=== PATIENT | male | born 1985 | race African-American/Black ===

== ENCOUNTER 2016-12-20 19:59 | Emergency (ER) | payer OTHER ==
[~2016-12-20 19:59] MED LIST: B12,B-12,B 12500 MC1 PO; BACTRIM DS 8001 TA1 PO; CLINDAMYCIN HC300 MG PO; DAYPRO600 M1 PO; HYDROCODONE BIT1 T11 PO; INDOMETHACIN25 M1 PO; LOMOTIL 0.025 M1 TA1 PO; MOTRIN800 MG PO; Motrin,Rufen800 MG PO; NAPROSYN500 MG PO; NKHM; NORCO 325 MG-51 TAB PO; NORCO 5-325 TA1 EACH PO; PARAFON FORTE500 MG PO; PEN-V500 MG PO; PREDNISONE50 MG PO; ROBAXIN750 MG PO; ULTRAM50 MG PO; VICODIN 5/500 505 MG PO; Veetids,V-Cill500 MG PO; ZITHROMAX250 MG PO; ZOFRAN ODT4 MG SL; ZOVIRAX400 MG PO
[2016-12-20] MEDS ORDERED: 'PARAFON FORTE500 M1 PO (20:21)
[2016-12-20] MEDS ORDERED: NAPROSYN500 MG PO (20:21)
[2016-12-20] MEDS ORDERED: PENICILLIN VK500 MG PO (20:31)
[2016-12-20] MEDS ORDERED: Peridex 473 ML473 ML PO (20:31)
== END 2016-12-20 20:57 | disposition home or self-care (01) ==
LOC: ED 19:59
DX: M54.41 Lumbago with sciatica, right side (principal); K02.9 Dental caries, unspecified; R03.0 Elevated blood-pressure reading, without diagnosis of hypertension; F17.200 Nicotine dependence, unspecified, uncomplicated

== ENCOUNTER 2016-12-23 21:19 | Emergency (ER) | payer OTHER ==
[~2016-12-23] VITALS: Ht 167.6 cm; Wt 68.0 kg
[~2016-12-23 21:19] MED LIST changes: +'PARAFON FORTE500 M1 PO; +PENICILLIN VK500 MG PO; +Peridex 473 ML473 ML PO
[2016-12-23] MEDS ORDERED: Orphenadrine C100 MG PO (22:10)
[2016-12-23] MEDS ORDERED: ULTRAM50 MG PO (22:10)
== END 2016-12-23 22:12 | disposition home or self-care (01) ==
LOC: ED 21:19
DX: M54.31 Sciatica, right side (principal)

== ENCOUNTER → 2017-02-24 | Outpatient (CLI) | payer OTHER ==
[~2017-02-24] MED LIST changes: +Orphenadrine C100 MG PO
== END | disposition home or self-care (01) ==
LOC: RESCLI 02-20 10:49
DX: Z00.00 Encounter for general adult medical examination without abnormal findings (principal)

== ENCOUNTER 2017-06-26 23:50 | Emergency (ER) | payer OTHER ==
[~2017-06-26] VITALS: Ht 167.6 cm; Wt 68.0 kg
[2017-06-27] MEDS ORDERED: AMOXICILLIN500 M2 PO (00:07)
== END 2017-06-27 01:14 | disposition home or self-care (01) ==
LOC: ED 23:50
DX: K08.89 Other specified disorders of teeth and supporting structures (principal); F17.200 Nicotine dependence, unspecified, uncomplicated; Z79.899 Other long term (current) drug therapy

== ENCOUNTER 2017-07-24 09:32 | Emergency (ER) | payer OTHER ==
[~2017-07-24] VITALS: Ht 167.6 cm; Wt 70.3 kg
[~2017-07-24 09:32] MED LIST changes: +AMOXICILLIN500 M2 PO
[2017-07-24 10:08] LABS: BASO % 0.5 % (0.0-1.0); EOS # 0.1 10*3/uL (0.0-0.4); EOS % 1.7 % (1.0-4.0); HEMATOCRIT 44.1 % (42.0-52.0); LYMPH # 2.8 10*3/uL (1.3-4.4); LYMPH % 37.7 % (27.0-41.0); MEAN CELL VOLUME 79.2 fl (80.0-94.0); MEAN CORPUSCULAR HGB 25.1 pg (27.0-31.0); MEAN CORPUSCULAR HGB CONC 31.7 g/dl (33.0-37.0); MEAN PLATELET VOLUME 9.1 fl (9.6-12.3); MONO # 0.7 10*3/uL (0.1-1.0); MONO % 9.2 % (3.0-9.0); NEUT # 3.8 10*3/uL (2.3-7.9); NEUT % 50.8 % (47.0-73.0); PLATELET COUNT AUTOMATED 245 10*3/uL (130-400); RED BLOOD COUNT 5.57 10*6/uL (4.50-5.90); RED CELL DISTRI WIDTH 13.2 % (0-14.5); WHITE BLOOD COUNT 7.5 10*3/uL (4.8-10.8)
[2017-07-24 10:26] LABS: ALBUMIN 3.8 gm/dl (3.1-4.5); ALKALINE PHOSPHATASE 81 U/L (45-117); BUN 9 mg/dl (7-24); CHLORIDE 106 mmol/L (98-107); CREATININE 0.87 mg/dL (0.70-1.30); LIPASE 150 U/L (73-393); POTASSIUM 4.2 mmol/L (3.5-5.1); SGOT/AST 20 IU/L (3-35); SGPT/ALT 32 U/L (12-78); SODIUM 139 mmol/L (136-145); TOTAL PROTEIN 7.2 gm/dL (6.4-8.2)
[2017-07-24 11:07] LABS: BILIRUBIN NEGATIVE (NEGATIVE); BLOOD NEGATIVE (NEGATIVE); CLARITY CLEAR (CLEAR); COLOR YELLOW (YELLOW); GLUCOSE NEGATIVE (NEGATIVE); KETONE NEGATIVE (NEGATIVE); LEUKO ESTERASE NEGATIVE (NEGATIVE); NITRITE NEGATIVE (NEGATIVE); SPECIFIC GRAVITY 1.025 (1.005-1.030); UROBILINOGEN 0.2 E.U./dl (0.2-1.0)
[2017-07-24 11:21] LABS: MUCOUS TRACE; RBC 0-2 rbc/hpf (0-2); WBC 0-2 wbc/hpf (0-5)
[2017-07-24] MEDS ORDERED: CYCLOBENZAPRINE5 M3 PO (11:30)
== END 2017-07-24 11:42 | disposition home or self-care (01) ==
LOC: ED 09:32
PROVIDERS: Nurse Practitioner Family
DX: S29.011A Strain of muscle and tendon of front wall of thorax, initial encounter (principal); R10.12 Left upper quadrant pain; F17.200 Nicotine dependence, unspecified, uncomplicated; Z98.890 Other specified postprocedural states; X50.1XXA Overexertion from prolonged static or awkward postures, initial encounter; Y93.89 Activity, other specified; Y92.89 Other specified places as the place of occurrence of the external cause; Y99.9 Unspecified external cause status

== ENCOUNTER 2018-02-05 04:38 | Emergency (ER) | payer OTHER ==
[~2018-02-05] VITALS: Ht 167.6 cm; Wt 77.1 kg
[~2018-02-05 04:38] MED LIST changes: +CYCLOBENZAPRINE5 M3 PO
[2018-02-05 05:06] LABS: BASO % 0.3 % (0.0-1.0); EOS # 0.1 10*3/uL (0.0-0.4); EOS % 1.3 % (1.0-4.0); HEMATOCRIT 45.4 % (42.0-52.0); HEMOGLOBIN 14.3 g/dl (14.0-18.0); LYMPH # 1.3 10*3/uL (1.3-4.4); LYMPH % 14.7 % (27.0-41.0); MEAN CELL VOLUME 79.5 fl (80.0-94.0); MEAN CORPUSCULAR HGB CONC 31.5 g/dl (33.0-37.0); MEAN PLATELET VOLUME 9.1 fl (9.6-12.3); MONO # 0.9 10*3/uL (0.1-1.0); MONO % 9.8 % (3.0-9.0); NEUT # 6.5 10*3/uL (2.3-7.9); NEUT % 73.6 % (47.0-73.0); PLATELET COUNT AUTOMATED 229 10*3/uL (130-400); RED BLOOD COUNT 5.71 10*6/uL (4.50-5.90); RED CELL DISTRI WIDTH 13.4 % (0-14.5); WHITE BLOOD COUNT 8.8 10*3/uL (4.8-10.8)
[2018-02-05 05:27] LABS: ALBUMIN 4.2 gm/dl (3.1-4.5); ALKALINE PHOSPHATASE 85 U/L (45-117); BUN 9 mg/dl (7-24); CHLORIDE 106 mmol/L (98-107); POTASSIUM 3.8 mmol/L (3.5-5.1); SGOT/AST 28 IU/L (3-35); SGPT/ALT 40 U/L (12-78); SODIUM 142 mmol/L (136-145); TOTAL PROTEIN 7.9 gm/dL (6.4-8.2)
[2018-03-06] MEDS ORDERED: IBUPROFEN600 MG PO (01:03)
== END 2018-02-05 06:04 | disposition home or self-care (01) ==
LOC: ED 04:38
PROVIDERS: Student in an Organized Health Care Education/Training Program
DX: R19.7 Diarrhea, unspecified (principal); R51 Headache; R10.30 Lower abdominal pain, unspecified

== ENCOUNTER 2018-06-16 17:06 | Emergency (ER) | payer OTHER ==
[~2018-06-16] VITALS: Wt 79.4 kg
[~2018-06-16 17:06] MED LIST changes: +IBUPROFEN600 MG PO
[2018-06-16] MEDS ORDERED: ANAPROX DS550 MG PO (18:51)
== END 2018-06-16 19:05 | disposition home or self-care (01) ==
LOC: ED 17:06
DX: S92.422A Displaced fracture of distal phalanx of left great toe, initial encounter for closed fracture (principal); F17.200 Nicotine dependence, unspecified, uncomplicated; Z79.1 Long term (current) use of non-steroidal anti-inflammatories (NSAID); Y93.02 Activity, running; W01.0XXA Fall on same level from slipping, tripping and stumbling without subsequent striking against object, initial encounter; Y92.89 Other specified places as the place of occurrence of the external cause; Y99.8 Other external cause status

== ENCOUNTER 2018-07-23 19:11 | Emergency (ER) | payer OTHER ==
[~2018-07-23] VITALS: Ht 167.6 cm; Wt 81.6 kg
[~2018-07-23 19:11] MED LIST changes: +ANAPROX DS550 MG PO
[2018-07-23 19:39] LABS: BILIRUBIN NEGATIVE (NEGATIVE); BLOOD NEGATIVE (NEGATIVE); CLARITY CLEAR (CLEAR); COLOR YELLOW (YELLOW); GLUCOSE NEGATIVE (NEGATIVE); KETONE NEGATIVE (NEGATIVE); LEUKO ESTERASE NEGATIVE (NEGATIVE); NITRITE NEGATIVE (NEGATIVE); PH 5.5 (5.0-9.0); SPECIFIC GRAVITY >= 1.030 (1.005-1.030); UROBILINOGEN 0.2 E.U./dl (0.2-1.0)
[2018-07-23 19:50] LABS: BACTERIA 1+; MUCOUS 3+; RBC 0-2 rbc/hpf (0-2)
== END 2018-07-23 19:55 ==
LOC: ED 19:11
PROVIDERS: Nurse Practitioner Family
DX: Z11.3 Encounter for screening for infections with a predominantly sexual mode of transmission (principal); R03.0 Elevated blood-pressure reading, without diagnosis of hypertension; G43.909 Migraine, unspecified, not intractable, without status migrainosus; F17.200 Nicotine dependence, unspecified, uncomplicated; Z79.899 Other long term (current) drug therapy

== ENCOUNTER → 2018-08-19 | Outpatient (CLI) | payer OTHER ==
[2018-08-19 10:28] LABS: HEMATOCRIT 47.5 % (42.0-52.0); HEMOGLOBIN 15.1 g/dl (14.0-18.0); MEAN CELL VOLUME 80.4 fl (80.0-94.0); MEAN CORPUSCULAR HGB 25.5 pg (27.0-31.0); MEAN CORPUSCULAR HGB CONC 31.8 g/dl (33.0-37.0); MEAN PLATELET VOLUME 8.8 fl (9.6-12.3); RED BLOOD COUNT 5.91 10*6/uL (4.50-5.90); RED CELL DISTRI WIDTH 13.3 % (0-14.5); WHITE BLOOD COUNT 8.3 10*3/uL (4.8-10.8)
[2018-08-19 10:59] LABS: ALKALINE PHOSPHATASE 64 U/L (45-117); BUN 8 mg/dl (7-24); CHLORIDE 102 mmol/L (98-107); CHOLESTEROL 170 mg/dL (<200); CREATININE 1.04 mg/dL (0.70-1.30); SGOT/AST 23 IU/L (3-35); SGPT/ALT 41 U/L (12-78); SODIUM 136 mmol/L (136-145); TOTAL PROTEIN 7.8 gm/dL (6.4-8.2); TRIGLYCERIDES 120 mg/dl (<150); VLDL CHOLESTEROL 24 mg/dL (6-40)
[2018-08-19 11:07] LABS: HDL CHOLESTEROL 36 mg/dl (40-60); LDL CHOLESTEROL 110 mg/dL (9-159)
== END | disposition home or self-care (01) ==
LOC: LAB 10:07
PROVIDERS: Physician Assistant
DX: G43.001 Migraine without aura, not intractable, with status migrainosus (principal)

== ENCOUNTER 2018-09-10 15:32 | Emergency (ER) | payer OTHER ==
[~2018-09-10] VITALS: Ht 167.6 cm; Wt 74.8 kg
[2018-09-10] MEDS ORDERED: NAPROSYN500 MG PO (15:36)
[2018-09-10] MEDS ORDERED: NORCO 5-325 TA1 EACH PO (16:43)
[2019-01-29] MEDS ORDERED: KEFLEX500 M1 PO (15:33)
== END 2018-09-10 16:45 | disposition home or self-care (01) ==
LOC: ED 15:32
DX: S62.316A Displaced fracture of base of fifth metacarpal bone, right hand, initial encounter for closed fracture (principal); G43.909 Migraine, unspecified, not intractable, without status migrainosus; F17.200 Nicotine dependence, unspecified, uncomplicated; Z79.899 Other long term (current) drug therapy; W22.8XXA Striking against or struck by other objects, initial encounter; Y93.89 Activity, other specified; Y92.89 Other specified places as the place of occurrence of the external cause; Y99.8 Other external cause status

== ENCOUNTER 2018-09-14 21:54 | Emergency (ER) | payer OTHER ==
[~2018-09-14] VITALS: Ht 167.6 cm; Wt 82.6 kg
[~2018-09-14 21:54] MED LIST changes: -KEFLEX500 M1 PO
[2019-01-29] MEDS ORDERED: KEFLEX500 M1 PO (15:33)
== END 2018-09-15 00:13 | disposition home or self-care (01) ==
LOC: ED 21:54
DX: M25.531 Pain in right wrist (principal); G43.909 Migraine, unspecified, not intractable, without status migrainosus; F17.200 Nicotine dependence, unspecified, uncomplicated; Z46.89 Encounter for fitting and adjustment of other specified devices

== ENCOUNTER → 2018-09-14 | Outpatient (CLI) | payer OTHER ==
[~2018-09-14] MED LIST changes: +KEFLEX500 M1 PO
== END | disposition home or self-care (01) ==
LOC: ORTHO 00:29
DX: S62.306D Unspecified fracture of fifth metacarpal bone, right hand, subsequent encounter for fracture with routine healing (principal); X58.XXXD Exposure to other specified factors, subsequent encounter

== ENCOUNTER → 2018-11-15 | Outpatient (CLI) | payer OTHER ==
[~2018-11-15] MED LIST changes: +KEFLEX500 M1 PO
== END | disposition home or self-care (01) ==
LOC: ORTHO 01:10
DX: S62.346D Nondisplaced fracture of base of fifth metacarpal bone, right hand, subsequent encounter for fracture with routine healing (principal); X58.XXXD Exposure to other specified factors, subsequent encounter

== ENCOUNTER 2018-11-24 14:10 | Emergency (ER) | payer OTHER ==
[~2018-11-24] VITALS: Ht 167.6 cm; Wt 77.1 kg
[~2018-11-24 14:10] MED LIST changes: -KEFLEX500 M1 PO
[2018-11-24] MEDS ORDERED: NORCO 5-325 TA1 EACH PO (16:22)
[2019-01-29] MEDS ORDERED: KEFLEX500 M1 PO (15:33)
== END 2018-11-24 16:41 | disposition home or self-care (01) ==
LOC: ED 14:10
DX: S62.396A Other fracture of fifth metacarpal bone, right hand, initial encounter for closed fracture (principal); S60.511A Abrasion of right hand, initial encounter; W22.09XA Striking against other stationary object, initial encounter; Y93.89 Activity, other specified; Y92.89 Other specified places as the place of occurrence of the external cause; Y99.8 Other external cause status

== ENCOUNTER → 2018-11-27 | Outpatient (CLI) | payer OTHER ==
[~2018-11-27] MED LIST changes: +KEFLEX500 M1 PO
== END | disposition home or self-care (01) ==
LOC: CT 10:49
DX: S62.306A Unspecified fracture of fifth metacarpal bone, right hand, initial encounter for closed fracture (principal); X58.XXXA Exposure to other specified factors, initial encounter; Y93.89 Activity, other specified; Y92.89 Other specified places as the place of occurrence of the external cause; Y99.8 Other external cause status

== ENCOUNTER 2018-12-11 14:46 | Emergency (ER) | payer OTHER ==
[~2018-12-11] VITALS: Ht 167.6 cm; Wt 77.1 kg
[~2018-12-11 14:46] MED LIST changes: -KEFLEX500 M1 PO
[2019-01-29] MEDS ORDERED: KEFLEX500 M1 PO (15:33)
== END 2018-12-11 16:49 | disposition home or self-care (01) ==
LOC: ED 14:46
DX: S62.392A Other fracture of third metacarpal bone, right hand, initial encounter for closed fracture (principal); G43.909 Migraine, unspecified, not intractable, without status migrainosus; X58.XXXA Exposure to other specified factors, initial encounter; Y93.89 Activity, other specified; Y92.89 Other specified places as the place of occurrence of the external cause; Y99.8 Other external cause status

== ENCOUNTER 2019-07-21 11:33 | Emergency (ER) | payer OTHER ==
[~2019-07-21] VITALS: Wt 72.6 kg
[~2019-07-21 11:33] MED LIST changes: +KEFLEX500 M1 PO
[2019-07-21] MEDS ORDERED: NAPROSYN500 MG PO (12:24)
[2019-07-21] MEDS ORDERED: TYLENOL325 M1 PO (12:24)
== END 2019-07-21 12:34 | disposition home or self-care (01) ==
LOC: ED 11:33
DX: S89.91XA Unspecified injury of right lower leg, initial encounter (principal); M25.571 Pain in right ankle and joints of right foot; W22.09XA Striking against other stationary object, initial encounter; Y93.01 Activity, walking, marching and hiking; Y92.89 Other specified places as the place of occurrence of the external cause; Y99.8 Other external cause status

== ENCOUNTER 2020-03-28 16:53 | Emergency (ER) | payer OTHER ==
[~2020-03-28] VITALS: Wt 72.6 kg
[~2020-03-28 16:53] MED LIST changes: +TYLENOL325 M1 PO
[2020-03-28] MEDS ORDERED: MEDROL DOSEPAK4 MG PO (17:22)
[2020-03-28] MEDS ORDERED: METHOCARBAMOL500 M1 PO (17:22)
[2020-03-28] MEDS ORDERED: NAPROSYN500 MG PO (17:22)
== END 2020-03-28 17:50 | disposition home or self-care (01) ==
LOC: ED 16:53
DX: M54.41 Lumbago with sciatica, right side (principal); Z98.890 Other specified postprocedural states

== ENCOUNTER 2020-04-13 18:22 | Emergency (ER) | payer OTHER ==
[~2020-04-13] VITALS: Ht 167.6 cm; Wt 77.1 kg
[~2020-04-13 18:22] MED LIST changes: +MEDROL DOSEPAK4 MG PO; +METHOCARBAMOL500 M1 PO
[2020-04-13] MEDS ORDERED: PREDNISONE20 M1 PO (20:48)
[2020-04-13] MEDS ORDERED: ROBAXIN-750750 MG PO (20:48)
== END 2020-04-13 20:48 | disposition home or self-care (01) ==
LOC: ED 18:22
DX: M54.31 Sciatica, right side (principal); F17.200 Nicotine dependence, unspecified, uncomplicated; Z79.899 Other long term (current) drug therapy

== ENCOUNTER 2020-04-30 11:36 | Emergency (ER) | payer OTHER ==
[~2020-04-30] VITALS: Ht 167.6 cm; Wt 78.5 kg
[~2020-04-30 11:36] MED LIST changes: +PREDNISONE20 M1 PO; +ROBAXIN-750750 MG PO
[2020-04-30] MEDS ORDERED: ULTRAM50 MG PO (13:53)
== END 2020-04-30 14:10 | disposition home or self-care (01) ==
LOC: ED 11:36
DX: S22.32XA Fracture of one rib, left side, initial encounter for closed fracture (principal); Z79.899 Other long term (current) drug therapy; X58.XXXA Exposure to other specified factors, initial encounter; Y93.89 Activity, other specified; Y92.89 Other specified places as the place of occurrence of the external cause; Y99.8 Other external cause status

== ENCOUNTER 2020-12-01 08:32 | Emergency (ER) | payer OTHER ==
[~2020-12-01] VITALS: Wt 78.0 kg
== END 2020-12-01 09:29 | disposition home or self-care (01) ==
LOC: ED 08:32
DX: L08.89 Other specified local infections of the skin and subcutaneous tissue (principal); G43.909 Migraine, unspecified, not intractable, without status migrainosus; Z98.890 Other specified postprocedural states

== ENCOUNTER 2021-04-30 20:36 | Emergency (ER) | payer OTHER ==
[~2021-04-30] VITALS: Ht 167.6 cm; Wt 79.4 kg
== END 2021-04-30 22:37 | disposition left against medical advice (07) ==
LOC: ED 20:36
DX: S69.91XA Unspecified injury of right wrist, hand and finger(s), initial encounter (principal); Z53.21 Procedure and treatment not carried out due to patient leaving prior to being seen by health care provider; W22.8XXA Striking against or struck by other objects, initial encounter; Y93.89 Activity, other specified; Y92.89 Other specified places as the place of occurrence of the external cause; Y99.8 Other external cause status

== ENCOUNTER → 2021-05-14 | Outpatient (CLI) | payer OTHER | END | disposition home or self-care (01) | LOC: RAD 11:51 | PROVIDERS: ATTEND Chiropractor | DX: M54.59 Other low back pain (principal) ==

== ENCOUNTER 2022-09-14 12:40 | Emergency (ER) | payer MEDICAID ==
[~2022-09-14] VITALS: Ht 167.6 cm; Wt 77.1 kg
== END 2022-09-14 13:30 | disposition home or self-care (01) ==
LOC: ED 12:40
DX: H10.9 Unspecified conjunctivitis (principal); S05.02XA Injury of conjunctiva and corneal abrasion without foreign body, left eye, initial encounter; Z98.890 Other specified postprocedural states; F10.90 Alcohol use, unspecified, uncomplicated; X58.XXXA Exposure to other specified factors, initial encounter; Y93.9 Activity, unspecified; Y92.89 Other specified places as the place of occurrence of the external cause; Y99.8 Other external cause status

== ENCOUNTER 2024-01-13 06:10 | Emergency (ER) | payer OTHER, MEDICAID ==
[~2024-01-13] VITALS: Ht 167.6 cm; Wt 81.6 kg
[2024-01-13] MEDS ORDERED: Ketorolac Tromethamine 60 MG/2 ML VIAL IM ONE (06:25)
[2024-01-13] MEDS ORDERED: NAPROXEN250 MG PO (06:29)
[2024-01-13] MEDS ORDERED: METHOCARBAMOL500 M1 PO (06:29)
[2024-01-13] MEDS ORDERED: METHOCARBAMOL 500 MG TAB PO ONE (06:30)
== END 2024-01-13 06:46 | disposition home or self-care (01) ==
LOC: ED 06:10
DX: S39.012A Strain of muscle, fascia and tendon of lower back, initial encounter (principal); Z98.890 Other specified postprocedural states; X50.1XXA Overexertion from prolonged static or awkward postures, initial encounter; Y93.89 Activity, other specified; Y92.009 Unspecified place in unspecified non-institutional (private) residence as the place of occurrence of the external cause; Y99.8 Other external cause status

== ENCOUNTER 2024-05-09 11:07 | Emergency (ER) | payer MEDICAID ==
[~2024-05-09] VITALS: Ht 167.6 cm; Wt 77.1 kg
[~2024-05-09 11:07] MED LIST changes: +NAPROXEN250 MG PO
[2024-05-09] MEDS ORDERED: SODIUM CHLORIDE 0.9% 1,000 ML IV ONE (11:35)
[2024-05-09] MEDS ORDERED: Ondansetron Hydrochloride 4 MG/2 ML VIAL IV ONE (11:35)
[2024-05-09 11:52] LABS: HEMATOCRIT 48.1 % (42.0-52.0); MEAN CELL VOLUME 80.3 fl (80.0-94.0); MEAN CORPUSCULAR HGB CONC 31.2 g/dl (33.0-37.0); MEAN PLATELET VOLUME 8.6 fl (9.6-12.3); PLATELET COUNT AUTOMATED 302 10*3/uL (130-400); RED BLOOD COUNT 5.99 10*6/uL (4.50-5.90); RED CELL DISTRI WIDTH 13.1 % (0-14.5); WHITE BLOOD COUNT 10.7 10*3/uL (4.8-10.8)
[2024-05-09 11:57] LABS: MANUAL DIFF REFLEX YES
[2024-05-09 12:13] LABS: ALKALINE PHOSPHATASE 80 U/L (46-116); BUN 6 mg/dl (9-23); CHLORIDE 103 mmol/L (98-107); LIPASE 36 U/L (12-53); POTASSIUM 3.4 mmol/L (3.4-5.1); SGPT/ALT 10 U/L (5-49); TOTAL PROTEIN 7.2 gm/dL (6.0-8.0)
[2024-05-09 12:19] LABS: ATYPICAL LYMPHS 1 % (0-0); PLATELET SUFFICIENCY NORMAL (NORMAL); POLYCHROMASIA SLIGHT; TOTAL CELLS COUNTED 100 #CELLS
[2024-05-09] MEDS ORDERED: Ondansetron4 MG PO (14:13)
== END 2024-05-09 14:21 | disposition home or self-care (01) ==
LOC: ED 11:07
PROVIDERS: Physician Assistant Medical
DX: K52.9 Noninfective gastroenteritis and colitis, unspecified (principal); R11.2 Nausea with vomiting, unspecified; Z98.890 Other specified postprocedural states

== ENCOUNTER 2024-10-02 22:26 | Emergency (ER) | payer MEDICAID ==
[~2024-10-02] VITALS: Ht 167.6 cm; Wt 81.6 kg
[~2024-10-02 22:26] MED LIST changes: +Ondansetron4 MG PO
[2024-10-03] MEDS ORDERED: METHOCARBAMOL750 M1 PO (00:59)
[2024-10-03] MEDS ORDERED: Cyclobenzaprine Hydrochlorid 10 MG TAB PO ONE (01:05)
[2024-10-03] MEDS ORDERED: Ketorolac Tromethamine 30 MG/ML VIAL IM ONE (01:05)
== END 2024-10-03 01:13 | disposition home or self-care (01) ==
LOC: ED 22:26
DX: M54.41 Lumbago with sciatica, right side (principal); M79.604 Pain in right leg; G43.909 Migraine, unspecified, not intractable, without status migrainosus; D64.9 Anemia, unspecified; Z98.890 Other specified postprocedural states

== ENCOUNTER 2024-10-20 11:08 | Emergency (ER) | payer MEDICAID ==
[~2024-10-20] VITALS: Wt 81.6 kg
[~2024-10-20 11:08] MED LIST changes: +METHOCARBAMOL750 M1 PO
[2024-10-20] MEDS ORDERED: Ketorolac Tromethamine 30 MG/ML VIAL IM ONE (11:35)
[2024-10-20] MEDS ORDERED: methylPREDNISolone sod succ 125 MG VIAL IM ONE (11:35)
[2024-10-20] MEDS ORDERED: PREDNISONE50 MG PO (13:29)
[2024-10-20] MEDS ORDERED: CYCLOBENZAPRINE5 M3 PO (13:29)
== END 2024-10-20 12:02 | disposition home or self-care (01) ==
LOC: ED 11:08
DX: M54.41 Lumbago with sciatica, right side (principal); G43.909 Migraine, unspecified, not intractable, without status migrainosus; Z98.890 Other specified postprocedural states